=== PATIENT | female | born 1970 | race Hispanic/Latino ===

== ENCOUNTER 2024-01-26 21:43 | Emergency (ER) | payer OTHER ==
[~2024-01-26] VITALS: Ht 160 cm; Wt 78.0 kg
[2024-01-26] MEDS ORDERED: SODIUM CHLORIDE 0.9% 1000ML 1,000 ML IV STA (21:53)
[2024-01-26 21:57] VITALS: TEMP 97.1
[2024-01-26 23:28] VITALS: PULSE 91; RESP 18; O2SAT 99
== END 2024-01-26 23:33 | disposition home or self-care (01) ==
LOC: FSED 21:48
DX: R00.2 Palpitations (principal); E87.1 Hypo-osmolality and hyponatremia; R42 Dizziness and giddiness
CPT/HCPCS: 93005; 99283; J7030

== ENCOUNTER 2025-02-16 10:49 | Emergency (ER) | payer OTHER ==
[~2025-02-16] VITALS: Ht 160 cm; Wt 82.7 kg
[2025-02-16] MEDS ORDERED: IMMUNERX CAPS250 MCG (11:36)
[2025-02-16] MEDS ORDERED: OMEPRAZOLE40 MG PO (11:36)
[2025-02-16] MEDS ORDERED: VENLAFAXINE HCL75 M2 PO (11:36)
[2025-02-16] MEDS ORDERED: ESTRADIOL1 MG PO (11:36)
[2025-02-16] MEDS ORDERED: TOPIRAMATE100 MG PO (11:36)
[2025-02-16] MEDS ORDERED: TIZANIDINE HCL4 MG PO (11:36)
[2025-02-16] MEDS: SODIUM CHLORIDE 0.9% 1000ML 1,000 ML IV STA (12:51)
[2025-02-16] MEDS ORDERED: KETOROLAC TROME10 MG PO (13:05)
[2025-02-16] MEDS ORDERED: DEXTROSE 50% SYRINGE 50 ML IV PRN (13:30)
[2025-02-16 13:33] VITALS: PULSE 60; RESP 16; TEMP 97.7; O2SAT 98
[2025-02-16] MEDS: KETOROLAC TROMETHAMINE 30 MG/ML VIAL IV STA (13:47)
[2025-02-16] MEDS ORDERED: INSULIN REGULAR, HUMAN 100 UNIT/1 ML SQ SCH (16:30)
== END 2025-02-16 13:33 | disposition home or self-care (01) ==
LOC: FSED 10:56
DX: R55 Syncope and collapse (principal); S00.83XA Contusion of other part of head, initial encounter; S13.4XXA Sprain of ligaments of cervical spine, initial encounter; R94.4 Abnormal results of kidney function studies
CPT/HCPCS: 70450; 70486; 72125; 80053; 81003; 84484; 85025; 93005; 99284; J1885; J7030

== ENCOUNTER 2025-03-12 20:30 | Emergency (ER) | payer OTHER ==
[~2025-03-12] VITALS: Ht 160 cm; Wt 82.6 kg
[~2025-03-12 20:30] MED LIST: ESTRADIOL1 MG PO; IMMUNERX CAPS250 MCG; KETOROLAC TROME10 MG PO; OMEPRAZOLE40 MG PO; TIZANIDINE HCL4 MG PO; TOPIRAMATE100 MG PO; VENLAFAXINE HCL75 M2 PO
[2025-03-12 21:36] LABS: BASOPHILS % 0.6 % (0.0-1.0); EOSINOPHILS % 2.1 % (0.0-6.0); LYMPHOCYTES % 44.9 % (18.0-39.1); MONOCYTES % 8.0 % (4.4-11.3); NEUTROPHILS % 44.2 % (38.7-80.0); RED CELL DISTRIBUTION WIDTH 12.2 % (11.7-14.4)
[2025-03-12 21:42] LABS: AMPHETAMINES SCREEN,URINE NEGATIVE (NEGATIVE); CANNABINOIDS SCREEN,URINE NEGATIVE (NEGATIVE); COCAINE SCREEN,URINE NEGATIVE (NEGATIVE); LEUKOCYTE ESTERASE ,URINE NEGATIVE (NEGATIVE); METHADONE SCREEN, URINE NEGATIVE (NEGATIVE); OPIATES SCREEN,URINE NEGATIVE (NEGATIVE); PROTEIN,URINE DIPSTICK NEGATIVE (NEGATIVE); URINE UROBILINOGEN 0.2 mg/dL (0.2 - 1)
[2025-03-12 21:43] LABS: EPITHELIAL CELLS,URINE FEW /LPF; WBC,URINE (MAN) 0-5 /HPF (0-5)
[2025-03-12 21:47] LABS: EST GLOMERULAR FILTRATION RATE 95 ML/MIN (>=60)
[2025-03-12 22:00] LABS: ETHANOL 232.3 mg/dL (0.0-10.0)
[2025-03-12] MEDS: MULTIVITAMINS- 12 INJECTION 10 ML, FOLIC ACID MDV 1 MG, THIAMINE HCL INJ 100 MG in SODI... IV ONE (22:05)
[2025-03-13] MEDS: ACETAMINOPHEN 325 MG TAB PO ONE (00:19)
[2025-03-13 02:33] VITALS: PULSE 88; RESP 18; TEMP 98.4
[2025-03-13 06:14] VITALS: BP 126/67; PULSE 87; RESP 18; TEMP 98; O2SAT 99
== END 2025-03-13 05:47 | disposition home or self-care (01) ==
LOC: ER 20:42
DX: F10.129 Alcohol abuse with intoxication, unspecified (principal); E78.5 Hyperlipidemia, unspecified; K21.9 Gastro-esophageal reflux disease without esophagitis; F41.9 Anxiety disorder, unspecified; F32.A Depression, unspecified; R94.31 Abnormal electrocardiogram [ECG] [EKG]; Z98.84 Bariatric surgery status
CPT/HCPCS: 36415; 80053; 80307; 80320; 80329 ×2; 81001; 82550; 84484; 85025; 93005; 99283; J3411; J7030